=== PATIENT | female | born 1940 | race Caucasian/White ===

== ENCOUNTER 2021-04-04 11:47 | Inpatient (IN) | payer MEDICARE ==
[~2021-04-04] VITALS: Ht 160 cm; Wt 52.5 kg
[2021-04-04 15:39] VITALS: BP 121/95
[2021-04-04] MEDS ORDERED: DONE5TAB82 PO (16:35)
[2021-04-04] MEDS ORDERED: LEVO50TA5 PO (16:35)
[2021-04-04] MEDS ORDERED: ACET-907 PO (16:35)
[2021-04-04] MEDS ORDERED: OMEP-218 PO (16:35)
[2021-04-04] MEDS ORDERED: GABA-282 PO ×2 (16:35)
[2021-04-04] MEDS ORDERED: ATIV1TAB10 PO (16:35)
[2021-04-04] MEDS ORDERED: MORP1CAP46 PO (16:35)
[2021-04-04] MEDS ORDERED: MUCI600T31 PO (16:35)
[2021-04-04] MEDS ORDERED: DICL1GEL3 TOP (16:35)
[2021-04-04] MEDS ORDERED: LEXA1TAB2 PO (16:35)
[2021-04-04] MEDS ORDERED: TREL1AER INH (16:35)
[2021-04-04] MEDS ORDERED: OMEPRAZOLE 20 MG CAP PO PRN (17:25)
[2021-04-04 17:39] LABS: MEAN CORPUSCULAR HEMOGLOBIN 24.9 pg (27.0-33.0); MEAN CORPUSCULAR HGB CONC 28.5 g/dl (32.0-36.5); MEAN CORPUSCULAR VOLUME 87.3 fl (80.0-96.0); PLATELET COUNT, AUTOMATED 285 10^3/uL (150-450); RED BLOOD COUNT 1.73 10^6/uL (4.00-5.40); WHITE BLOOD COUNT 9.1 10^3/uL (4.0-10.0)
[2021-04-04 17:45] LABS: HEMOGLOBIN 4.3 g/dl (12.0-15.5)
[2021-04-04 17:46] LABS: HEMATOCRIT 15.1 % (36.0-47.0)
--- NOTE | 2021-04-04 17:57 | HPEPDOC ---
[facility] Medical History & Physical Date of Admission April 04, 2021 Date of Service: April 04, 2021 Primary Care Physician: KAYA LOMBARDO MD Attending Physician: KUNAL YOUNG DO History and Physical CHIEF COMPLAINT: Severe anemia HISTORY OF PRESENT ILLNESS: And patient was transferred to [facility] [place] from [facility] for severe anemia (hemoglobin 5.0). The patient was supposed to get a blood transfusion about [facility], but they do not carry her type there, and blood transfusion would've been delayed until Friday, therefore she was transferred to our facility for blood transfusion, and evaluation/investigation into possible GI bleed. 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 Amazingly, she actually appears to be at her baseline status at this time. She has chronic shortness of breath due to severe COPD and emphysema, and is always on 3 L nasal cannula /. Perhaps she does have some increase in fatigue, and over the past few days did have a few episodes of lightheadedness, but is not currently experiencing any right now. She does appear more pale than usual though. Nevertheless, given the fact that she is largely asymptomatic with a hemoglobin of 5.0, this would certainly suggest that this is a chronic slow bleed at this time. Labs obtained from [facility] indicate hemoglobin 5.0, MCV 87.2, reticulocyte index of 0.41 indicating inadequate bone marrow response. Iron 17, iron saturation 4, ferritin 11, and apparently the transferrin was still pending. Patient did have a low folic acid at 4.1 She does have chronic kidney disease. And with a history of black tarry stools, it appears that all of these could be contributing to her anemia. Additional labs from [facility] indicate an LDH 327 (mildly high), bilirubin 0.3, and pending haptoglobin. These labs would indicate that hemolysis is a possibility, but less likely the cause of her anemia. Vitamin B12 was within normal limits. TSH and free T4 were within normal limits. CODE STATUS: DNR/DNI a new MOLST form was filled out with the patient and her daughter PAST MEDICAL HISTORY: Chronic back pain secondary to severe lobar spinal stenosis Anxiety Severe COPD Chronic kidney disease Emphysema Hypothyroidism Prediabetes Hyperlipidemia Memory loss/mild dementia Tobacco use PAST SURGICAL HISTORY: Rectal prolapse repair 09/11/2020 Mammogram 2019 Extraction of wisdom tooth 2018 Uterine suspension 1969 Bladder repair in 1968 Hysterectomy 1982 Appendectomy 1974 Most recent colonoscopy 10 10 2019 Cholecystectomy 1996 Tonsillectomy 1960 Cataract surgery in 2016 Rectal suspension 2016 SOCIAL HISTORY: Continues to smoke a few cigarettes per day, she does remove her oxygen to do t his. She has been counseled extensively over the years to quit smoking. She does not drink, nor do any illicit drugs. FAMILY HISTORY: Brother has leukemia, father had manic depressive disorder and colon cancer. Mother had tic [place]. Sr. had heart disorder. REVIEW OF SYSTEMS: Constitutional: Patient denies fevers, chills, night sweats, recent weight gain/loss. HEENT: Patient denies blurred or double vision, transient visual disturbances, postnasal drip, epistaxis, sore throat, difficulty chewing or swallowing food. Cardiovascular: Patient denies chest discomfort/pain, palpitations, exertional dyspnea, orthopnea, edema of the extremities, claudication. Respiratory: Patient denies acute dyspnea, wheezing, cough, hemoptysis, sputum production. Gastrointestinal: Patient denies nausea, vomiting, diarrhea, constipation, abdominal pain, melena, hematochezia, hematemesis, jaundice. PHYSICAL EXAMINATION: General: Awake, alert, oriented 3. She is sitting upright on the edge of the bed. She does appear pale. She is wearing oxygen via nasal cannula. HEENT: Head normocephalic atraumatic, conjunctiva are pink, sclera are nonicteric. She is somewhat hard of hearing, but otherwise it is grossly intact to conversation. Respiratory: Clear to auscultation bilaterally with no wheezes, rales, or rhonchi at this time. Cardiovascular: Regular rate and rhythm, with no rubs, gallops, or murmur. Abdomen: Soft, nontender, nondistended, no hepatosplenomegaly appreciated. Bowel sounds present. Extremities: 2+ pulses in the radial and dorsalis pedis bilaterally. No evidence of clubbing or cyanosis. ASSESSMENT: Severe anemia History of her recent black tarry stools, with suspicion of upper GI bleed Low folic acid Low reticulocyte index indicating inadequate bone marrow response to anemia Iron deficiency anemia Chronic kidney disease, stage III-IV Hypothyroidism Severe COPD with chronic hypoxia PLAN: Will admit the patient to [facility]. -We will transfuse 3 units of blood immediately, and then recheck H&H in the morning, if she is still less than 8, we will perhaps transfuse again tomorrow. Given her frailty and significantly compromised lungs, I do not wish to fluid overload her with too many units at once. Given her history it appears that she does have a GI bleed is quite slow at this time. -We will start her on Protonix 40 mg, as well as Carafate 1g 4 times a day -Stool for occult blood ordered, if this is positive, then recommend consult to GI or surgery for colonoscopy/endoscopy -Low folic acid, supplementation ordered -Otherwise, we'll continue the remainder of her home medications at their usual dose for her chronic medical conditions. -3 L nasal cannula for COPD and chronic hypoxemia, which is her baseline at home Vital Signs Vital Signs Date Time Temp Pulse Resp B/P (MAP) Pulse Ox O2 Delivery O2 Flow Rate FiO2 04/04/21 15:39 97.4 91 20 121/95 (104) 100 Nasal Cannula 3.0 Laboratory Data Labs 24H Laboratory Tests 2 04/04/21 17:12: Nucleated Red Blood Cells % (auto) 0.2H CBC/BMP Laboratory Tests 04/04/21 17:12 Home Medications Scheduled Donepezil HCl (Donepezil HCl) 5 Mg Tablet, 5 MG PO QHS Escitalopram Oxalate (Lexapro) 20 Mg Tablet, 20 MG PO QHS Fluticasone/Umeclidin/Vilanter (Trelegy Ellipta 100-62.5-25) 1 Each Blst.w.dev, 1 PUFF INH DAILY Gabapentin (Gabapentin) 300 Mg Capsule, 600 MG PO BID TAKES MORNING AND BETWEEN 2-3PM Gabapentin (Gabapentin) 300 Mg Capsule, 900 MG PO QHS Levothyroxine Sodium (Levothyroxine Sodium) 50 Mcg Tablet, 50 MCG PO DAILY Morphine Sulfate (Morphine Sulfate ER 24HR) 10 Mg Cap.er.pel, 10 MG PO Q12H Scheduled PRN Acetaminophen (Tylenol) 325 Mg Tablet, 650 MG PO QID PRN for PAIN / FEVER Diclofenac Sodium (Diclofenac Sodium) 1% 100GM Gel..gram., 4 GRAM TOP QID PRN for PAIN APPLY TO KNEES AND BACK Guaifenesin (Mucinex) 600 Mg Tab.er.12h, 600 MG PO BID PRN for COUGH Lorazepam (Ativan) 0.5 Mg Tablet, 0.5 MG PO TID PRN for ANXIETY Omeprazole (Omeprazole) 20 Mg Capsule.dr, 20 MG PO DAILY PRN for HEARTBURN Allergies Coded Allergies: acetaminophen (Verified Adverse Reaction, Mild, ITCHING, 04/04/21) amoxicillin (Verified Adverse Reaction, Mild, VOMITING, 04/04/21) bacitracin (Verified Adverse Reaction, Mild, SYSTEMIC HYPERSENSITIVITY, 04/04/21) clavulanic acid (Verified Adverse Reaction, Mild, VOMITING, 04/04/21) clonazepam (Verified Adverse Reaction, Mild, NAUSEA, 04/04/21) codeine (Verified Adverse Reaction, Mild, ITCHING, 04/04/21) diphenhydramine (Verified Adverse Reaction, Mild, DIZZINESS, 04/04/21) duloxetine (Verified Adverse Reaction, Mild, SWEATS, NAUSEA, 04/04/21) hydrocodone (Verified Adverse Reaction, Mild, ITCHING, 04/04/21) meloxicam (Verified Adverse Reaction, Mild, STOMACH ACHE & HOT FLASHES, 04/04/21) nortriptyline (Verified Adverse Reaction, Mild, MUSCLE WEAKNESS, 04/04/21) paroxetine (Verified Adverse Reaction, Mild, HALUCINATIONS, 04/04/21) pramipexole (Verified Adverse Reaction, Mild, HALUCINATIONS, 04/04/21) sertraline (Verified Adverse Reaction, Mild, HALUCINATIONS, 04/04/21) tramadol (Verified Adverse Reaction, Mild, HALUCINATIONS, 04/04/21) trazodone (Verified Adverse Reaction, Mild, INSOMNIA, 04/04/21) A-FIB/CHADSVASC A-FIB History Current/History of A-Fib/PAF?: No KUNAL YOUNG DO April 04, 2021 17:57
[2021-04-04] MEDS: FOLIC ACID 1 MG TAB PO SCH (18:02)
[2021-04-04 18:08] LABS: ALBUMIN 3.5 GM/DL (3.2-5.2); BILIRUBIN,TOTAL 0.1 MG/DL (0.2-1.0); CALCIUM LEVEL 8.7 MG/DL (8.8-10.2); CREATININE FOR GFR 1.41 MG/DL (0.55-1.30); GLOMERULAR FILTRATION RATE 38.4 (>39); POTASSIUM SERUM 4.3 MEQ/L (3.5-5.1); TOTAL PROTEIN 6.6 GM/DL (6.4-8.2)
[2021-04-04] MEDS: SUCRALFATE 1 GM TAB PO SCH ×2 (18:08→20:19)
[2021-04-04] MEDS: PANTOPRAZOLE 40MG TAB (PROTONIX) PO SCH (18:08)
[2021-04-04] MEDS: ADVAIR HFA 115/21MCG INHALER INH SCH (20:17)
[2021-04-04] MEDS: MORPHINE 30 MG TAB **MSIR PO PRN (20:18)
[2021-04-04] MEDS: DONEPEZIL 5 MG TAB PO SCH (20:19)
[2021-04-04] MEDS: ESCITALOPRAM OXALATE 10 MG TAB (LEXAPRO) PO SCH (20:19)
[2021-04-04] MEDS: GABAPENTIN 300 MG CAP PO SCH (20:19)
[2021-04-04 21:08] VITALS: BP 150/51
[2021-04-04 21:23] VITALS: BP 148/56
[2021-04-04 22:00] VITALS: BP 150/51
[2021-04-04 22:08] VITALS: BP 118/58
[2021-04-04 23:08] VITALS: BP 148/76
[2021-04-05] VITALS (14 sets, daily range): BP systolic 132–158; BP diastolic 67–90
[2021-04-05] MEDS: ACETAMINOPHEN 325 MG TAB PO PRN ×3 (02:52→18:09)
[2021-04-05] MEDS: LEVOTHYROXINE 50MCG TABLET (0.05MG) PO SCH (05:34)
[2021-04-05] MEDS: ADVAIR HFA 115/21MCG INHALER INH SCH ×2 (07:31→19:49)
[2021-04-05] MEDS: PANTOPRAZOLE 40MG TAB (PROTONIX) PO SCH (09:20)
[2021-04-05] MEDS: GABAPENTIN 300 MG CAP PO SCH ×3 (09:20→20:15)
[2021-04-05] MEDS: FOLIC ACID 1 MG TAB PO SCH (09:20)
[2021-04-05] MEDS: SUCRALFATE 1 GM TAB PO SCH ×4 (09:20→20:15)
[2021-04-05] MEDS: LORazepam 0.5 MG TAB PO PRN ×2 (09:31→19:03)
[2021-04-05 10:12] LABS: HEMATOCRIT 28.8 % (36.0-47.0); MEAN CORPUSCULAR HEMOGLOBIN 27.8 pg (27.0-33.0); MEAN CORPUSCULAR HGB CONC 31.6 g/dl (32.0-36.5); MEAN CORPUSCULAR VOLUME 88.1 fl (80.0-96.0); PLATELET COUNT, AUTOMATED 274 10^3/uL (150-450); RED BLOOD COUNT 3.27 10^6/uL (4.00-5.40); WHITE BLOOD COUNT 11.5 10^3/uL (4.0-10.0)
[2021-04-05 10:23] LABS: HEMOGLOBIN 9.1 g/dl (12.0-15.5)
[2021-04-05 10:43] LABS: CALCIUM LEVEL 8.6 MG/DL (8.8-10.2); CREATININE FOR GFR 1.35 MG/DL (0.55-1.30); GLOMERULAR FILTRATION RATE 40.4 (>39); POTASSIUM SERUM 4.1 MEQ/L (3.5-5.1)
[2021-04-05 15:19] LABS: HEMATOCRIT 25.1 % (36.0-47.0); HEMOGLOBIN 8.1 g/dl (12.0-15.5)
[2021-04-05] MEDS ORDERED: propofoL 500 MG/50 ML VIAL As Ordered ONE (15:59)
[2021-04-05] MEDS ORDERED: LIDOCAINE 2% 100MG/5ML SDV (FOR ANES.) As Ordered ONE (15:59)
--- NOTE | 2021-04-05 16:18 | IPNPDOC ---
Text Note Date of Service The patient was seen on 04/05/21. NOTE Hospitalist Progress Note Subjective: Although the patient was feeling okay yesterday, she reports that she is actually feeling even better today. She certainly has a lot more color in her face, she was very pale yesterday. Both her daughter and her accompanying her in the room today, and they agree that this is the best she has looked perhaps in months. Otherwise, she does not have any other complaints, her only question is what the plan is going forward. Objective: General: Awake, alert, oriented 3. Not in any acute distress. HEENT: Head normocephalic, atraumatic, sclera are nonicteric. Hearing is grossly intact to conversation. Respiratory: Clear to auscultation bilaterally with no wheezes, rales, or rhonchi. Cardiovascular: Regular rate and rhythm, with no rubs, gallops, or murmur. Abdomen: Soft, nontender, nondistended, no hepatosplenomegaly appreciated. Bowel sounds present. Extremities: 2+ pulses in the radial and dorsalis pedis bilaterally. No evidence of clubbing or cyanosis. Assessment: Severe anemia requiring blood transfusion History of her recent black tarry stools, with suspicion of upper GI bleed Recent NSAID use Low folic acid Low reticulocyte index indicating inadequate bone marrow response to anemia Iron deficiency anemia Chronic kidney disease, stage III Hypothyroidism History of ongoing severe COPD Chronic hypoxic respiratory failure requiring 3 L O2 via nasal cannula at baseline at home Plan: After administration of 3 units of blood overnight her hemoglobin increased from 4.3 to 9.1, which is more than one would expect, and likely was just drawn too closely after she received her transfusion. Her repeat this afternoon was 8.1, and I would be more likely to believe that this is where she actually is, rather than a decrease from this morning. Nevertheless, we'll repeat another H&H tonight at approximately 10 PM to monitor progression. I have also consulted GI, they are willing to do upper endoscopy today to evaluate for source of bleeding. She is are even on clear liquids, and she will be switched over to nothing by mouth at this time in anticipation of her procedure. The patient and her family report that she heart he had a colonoscopy probably 6 months ago, therefore this does not need to be repeated at this time. Disposition: Disposition depends on the findings during endoscopy, and if H&H remains stable. VS,Fishbone, I+O VS, Fishbone, I+O Laboratory Tests 04/04/21 17:12 04/05/21 09:49 04/05/21 14:59 Vital Signs Date Time Temp Pulse Resp B/P (MAP) Pulse Ox O2 Delivery O2 Flow Rate FiO2 04/05/21 14:00 99.0 84 18 134/86 (102) 98 Nasal Cannula 3.0 I&O- Last 24 Hours up to 6 AM 04/05/21 06:00 Intake Total 1029 ml Output Total 550 ml Balance 479 ml KUNAL YOUNG DO April 05, 2021 16:18
--- NOTE | 2021-04-05 16:44 | ROOR ---
Patient Name: Amy Greenfield Procedure Date: 04/05/2021 3:13 PM Date of : 1940 Age: 80 Room: OR 1 Gender: Female Note Status: Finalized Procedure: Upper GI endoscopy Indications: Iron deficiency anemia Providers: Akbar Mathew MD Referring MD: 2. Inpatient 2. Inpatient Requesting Provider: Medicines: Monitored Anesthesia Care Complications: No immediate complications. Procedure: Pre-Anesthesia Assessment: - The heart rate, respiratory rate, oxygen saturations, blood pressure, adequacy of pulmonary ventilation, and response to care were monitored throughout the procedure. The Endoscope was introduced through the mouth, and advanced to the second part of duodenum. The upper GI endoscopy was accomplished without difficulty. The patient tolerated the procedure well. Findings: A single diminutive angioectasia without bleeding was found in the second portion of the duodenum. Coagulation for bleeding prevention using argon plasma at 0.8 liters/minute and 20 carrillo was successful. Very small (insignificant) Hiatal Hernia. The exam was otherwise without abnormality. Impression: - A single non-bleeding angioectasia in the duodenum. Treated with argon plasma coagulation (APC). - Very small (insignificant) Hiatal Hernia. - The examination was otherwise normal. - No specimens collected. Recommendation: - Observe patient's clinical course. - Return to referring physician as previously scheduled. - Recommend an iron supplement. - Follow up with your [place] endoscopy team as scheduled. - Return to my office PRN. Procedure Code(s): --- Professional --- 46301, Esophagogastroduodenoscopy, flexible, transoral; with control of bleeding, any method Diagnosis Code(s): --- Professional --- D50.9, Iron deficiency anemia, unspecified K31.819, Angiodysplasia of stomach and duodenum without bleeding CPT copyright 2019 [employer]. All rights reserved. The codes documented in this report are preliminary and upon continuous linter drier operator review may be revised to meet current compliance requirements. Akbar Mathew MD Akbar Mathew MD 04/05/2021 4:43:44 PM Electronically signed by Akbar Mathew MD Number of Addenda: 0 Note Initiated On: 04/05/2021 3:13 PM Estimated Blood Loss: Estimated blood loss: none.
[2021-04-05] MEDS ORDERED: ONDANSETRON 4MG/2ML VIAL IV PRN (16:55)
[2021-04-05] MEDS ORDERED: LR 1,000 ML IV SCH (16:55)
[2021-04-05] MEDS ORDERED: ONDANSETRON 4 MG ORAL DISINTEGRATING TAB PO PRN (19:05)
[2021-04-05] MEDS: DONEPEZIL 5 MG TAB PO SCH (20:15)
[2021-04-05] MEDS: ESCITALOPRAM OXALATE 10 MG TAB (LEXAPRO) PO SCH (20:16)
[2021-04-05] MEDS: MORPHINE 30 MG TAB **MSIR PO PRN (20:18)
[2021-04-05 21:42] LABS: HEMATOCRIT 25.4 % (36.0-47.0); HEMOGLOBIN 8.1 g/dl (12.0-15.5)
[2021-04-06 02:00] VITALS: BP 136/72
[2021-04-06] MEDS: LEVOTHYROXINE 50MCG TABLET (0.05MG) PO SCH (05:19)
[2021-04-06 06:00] VITALS: BP 124/57
[2021-04-06] MEDS: ADVAIR HFA 115/21MCG INHALER INH SCH ×2 (07:41→19:52)
[2021-04-06] MEDS: GABAPENTIN 300 MG CAP PO SCH ×3 (07:47→20:33)
[2021-04-06] MEDS: SUCRALFATE 1 GM TAB PO SCH ×4 (07:47→20:33)
[2021-04-06] MEDS: FOLIC ACID 1 MG TAB PO SCH (07:47)
[2021-04-06] MEDS: PANTOPRAZOLE 40MG TAB (PROTONIX) PO SCH (07:47)
[2021-04-06 07:49] LABS: HEMATOCRIT 24.2 % (36.0-47.0); HEMOGLOBIN 7.6 g/dl (12.0-15.5); MEAN CORPUSCULAR HEMOGLOBIN 27.4 pg (27.0-33.0); MEAN CORPUSCULAR HGB CONC 31.4 g/dl (32.0-36.5); MEAN CORPUSCULAR VOLUME 87.4 fl (80.0-96.0); PLATELET COUNT, AUTOMATED 250 10^3/uL (150-450); RED BLOOD COUNT 2.77 10^6/uL (4.00-5.40); WHITE BLOOD COUNT 8.9 10^3/uL (4.0-10.0)
[2021-04-06 08:13] LABS: CALCIUM LEVEL 8.3 MG/DL (8.8-10.2); CREATININE FOR GFR 1.06 MG/DL (0.55-1.30); GLOMERULAR FILTRATION RATE 53.4 (>39); POTASSIUM SERUM 4.2 MEQ/L (3.5-5.1)
[2021-04-06] MEDS ORDERED: IRON SUCROSE 200 MG in NS 100 ML IV ONE (11:00)
[2021-04-06 14:00] VITALS: BP 104/58
[2021-04-06] MEDS: ACETAMINOPHEN 325 MG TAB PO PRN (15:38)
--- NOTE | 2021-04-06 17:56 | IPNPDOC ---
Text Note Date of Service The patient was seen on 04/06/21. NOTE Subjective: No any acute events overnight. Patient denies fever, chills, nausea, diarrhea dysuria Objective: GENERAL APPEARANCE: NAD HEENT: no scleral icterus, no JVD, EOMI CARDIOVASCULAR: S1S2 LUNGS: CTA ABDOMEN: soft & not tender w palpitation MUSCULOSKELETAL: no cyanosis, no swelling INTEGUMENT: no generalized pallor NEUROLOGICAL: cranial nerve function from 2-12 intact intact, follows commands, speech not dysarthric Assessment plan Patient 80 years old female transferred here from [facility] with hemoglobins 4.3. Patient received EGD which showed A single non-bleeding angioectasia in the duodenum. Also during hospital stay patient received 2 units of blood transfusion. Severe anemia requiring blood transfusion/iron deficiency anemia Most likely secondary to GI bleed was done and showed A single non-bleeding angioectasia in the duodenum. Treated with argon plasma coagulation Continue to monitor H&H Hemoglobin stable today Iron supplementation CKD stage III Follow-up with maintenance planning clerk in the outpatient settings Hypothyroidism Continue levothyroxine COPD Chronic hypoxic respiratory failure requiring 3 L O2 via nasal cannula at baseline at home VS,Fishbone, I+O VS, Fishbone, I+O Laboratory Tests 04/05/21 21:27 04/06/21 07:19 Vital Signs Date Time Temp Pulse Resp B/P (MAP) Pulse Ox O2 Delivery O2 Flow Rate FiO2 04/06/21 14:00 99.0 95 16 104/58 (73) 98 Nasal Cannula 3.0 I&O- Last 24 Hours up to 6 AM 04/06/21 06:00 Intake Total 940 ml Balance 940 ml DESIREE DINH DO April 06, 2021 17:56
[2021-04-06] MEDS: guaiFENesin ER 600 MG TAB PO PRN (18:19)
[2021-04-06 18:30] LABS: HEMATOCRIT 26.9 % (36.0-47.0); HEMOGLOBIN 8.3 g/dl (12.0-15.5)
[2021-04-06] MEDS: DONEPEZIL 5 MG TAB PO SCH (20:33)
[2021-04-06] MEDS: ESCITALOPRAM OXALATE 10 MG TAB (LEXAPRO) PO SCH (20:33)
[2021-04-06] MEDS: MORPHINE 30 MG TAB **MSIR PO PRN (21:24)
[2021-04-06 22:00] VITALS: BP 113/61
[2021-04-07] VITALS (7 sets, daily range): BP systolic 111–130; BP diastolic 63–64
[2021-04-07 00:14] LABS: HEMATOCRIT 25.7 % (36.0-47.0); HEMOGLOBIN 8.1 g/dl (12.0-15.5)
[2021-04-07] MEDS: LEVOTHYROXINE 50MCG TABLET (0.05MG) PO SCH (05:22)
[2021-04-07 06:43] LABS: HEMATOCRIT 24.1 % (36.0-47.0); HEMOGLOBIN 7.4 g/dl (12.0-15.5); MEAN CORPUSCULAR HEMOGLOBIN 27.6 pg (27.0-33.0); MEAN CORPUSCULAR HGB CONC 30.7 g/dl (32.0-36.5); MEAN CORPUSCULAR VOLUME 89.9 fl (80.0-96.0); PLATELET COUNT, AUTOMATED 234 10^3/uL (150-450); RED BLOOD COUNT 2.68 10^6/uL (4.00-5.40); WHITE BLOOD COUNT 8.8 10^3/uL (4.0-10.0)
[2021-04-07 07:29] LABS: CALCIUM LEVEL 8.8 MG/DL (8.8-10.2); CREATININE FOR GFR 1.11 MG/DL (0.55-1.30); GLOMERULAR FILTRATION RATE 50.6 (>39)
[2021-04-07] MEDS: ADVAIR HFA 115/21MCG INHALER INH SCH (07:29)
[2021-04-07] MEDS ORDERED: ACETAMINOPHEN TAB 650MG DOSE (2X325MG) PO PRN (07:55)
[2021-04-07] MEDS: SUCRALFATE 1 GM TAB PO SCH ×2 (08:36→13:39)
[2021-04-07] MEDS: GABAPENTIN 300 MG CAP PO SCH ×2 (08:36→15:08)
[2021-04-07] MEDS: PANTOPRAZOLE 40MG TAB (PROTONIX) PO SCH (08:36)
[2021-04-07] MEDS: FOLIC ACID 1 MG TAB PO SCH (08:36)
[2021-04-07] MEDS ORDERED: IRON POLYSAC (NIFEREX) 150 MG CAP PO SCH (09:00)
[2021-04-07] MEDS ORDERED: IRON SUCROSE 200 MG in NS 100 ML IV ONE (10:00)
[2021-04-07] MEDS ORDERED: IRONTAB2 PO (10:02)
[2021-04-07] MEDS ORDERED: PANT40TA29 PO (10:02)
[2021-04-07] MEDS ORDERED: SUCR1TA PO (10:02)
[2021-04-07] MEDS: guaiFENesin ER 600 MG TAB PO PRN (10:26)
[2021-04-07] MEDS: MORPHINE 30 MG TAB **MSIR PO PRN (10:26)
--- NOTE | 2021-04-07 12:26 | DS.PDOC ---
Discharge Summary General Date of Admission April 04, 2021 at 15:30 Date of Discharge 04/07/21 Discharge Summary PROCEDURES PERFORMED DURING STAY: [None]. ADMITTING DIAGNOSES: Severe anemia requiring blood transfusion/iron deficiency anemia CKD stage III Hypothyroidism COPD DISCHARGE DIAGNOSES: Severe anemia requiring blood transfusion/iron deficiency anemia CKD stage III Hypothyroidism COPD COMPLICATIONS/CHIEF COMPLAINT: Anemmia, Upper Gi Bleed. HISTORY OF PRESENT ILLNESS: Patient was transferred to [facility] from [facility] for severe anemia (hemoglobin 5.0). The patient was supposed to get a blood transfusion about [facility], but they do not carry her type there, and blood transfusion would've been delayed until Friday, therefore she was transferred to our facility for blood transfusion, and evaluation/investigation into possible GI bleed. She has chronic shortness of breath due to severe COPD and emphysema, and is always on 3 L nasal cannula 02/06. Perhaps she does have some increase in fatigue, and over the past few days did have a few episodes of lightheadedness, but is not currently experien cing any right now. She does appear more pale than usual though. Nevertheless, given the fact that she is largely asymptomatic with a hemoglobin of 5.0, this would certainly suggest that this is a chronic slow bleed at this time. Labs obtained from [facility] indicate hemoglobin 5.0, MCV 87.2, reticulocyte index of 0.41 indicating inadequate bone marrow response. Iron 17, iron saturation 4, ferritin 11, and apparently the transferrin was still pending. Patient did have a low folic acid at 4.1 She does have chronic kidney disease. And with a history of black tarry stools, it appears that all of these could be contributing to her anemia. Additional labs from [facility] indicate an LDH 327 (mildly high), bilirubin 0.3, and pending haptoglobin. These labs would indicate that hemolysis is a possibility, but less likely the cause of her anemia. Vitamin B12 was within normal limits. TSH and free T4 were within normal limits. HOSPITAL COURSE: During the hospital stay following issues addressed Severe anemia requiring blood transfusion/iron deficiency anemia Most likely secondary to GI bleed EGD was done and showed A single non-bleeding angioectasia in the duodenum. Treated with argon plasma coagulation Hemoglobin stable today Iron supplementation CKD stage III Follow-up with dentist attendant in the outpatient settings Hypothyroidism Continue levothyroxine COPD Chronic hypoxic respiratory failure requiring 3 L O2 via nasal cannula at baseline at home DISCHARGE MEDICATIONS: Please see below. ALLERGIES: Please see below. PHYSICAL EXAMINATION ON DISCHARGE: VITAL SIGNS: Please see below. GENERAL APPEARANCE: NAD HEENT: no scleral icterus, no JVD, EOMI CARDIOVASCULAR: S1S2 LUNGS: CTA ABDOMEN: soft & not tender w palpitation MUSCULOSKELETAL: no cyanosis, no swelling INTEGUMENT: no generalized pallor NEUROLOGICAL: cranial nerve function from 2-12 intact intact, follows commands, speech not dysarthric LABORATORY DATA: Please see below. PROGNOSIS: Fair ACTIVITY: [As tolerated]. DIET: Cardiac DISPOSITION: Home ITEMS TO FOLLOWUP ON ON OUTPATIENT: Follow-up with PCP in 2-3 days DISCHARGE CONDITION: [Stable]. TIME SPENT ON DISCHARGE: 40 minutes. Vital Signs/I&Os Vital Signs Date Time Temp Pulse Resp B/P (MAP) Pulse Ox O2 Delivery O2 Flow Rate FiO2 04/07/21 10:56 16 04/07/21 09:00 3.0 04/07/21 05:00 100.0 94 111/64 (80) 96 Nasal Cannula I&O- Last 24 Hours up to 6 AM 04/07/21 06:00 Intake Total 950 ml Output Total 500 ml Balance 450 ml Laboratory Data Labs 24H Laboratory Tests 2 04/07/21 05:42: Nucleated Red Blood Cells % (auto) 0.2H, Anion Gap 7L, Glomerular Filtration Rate 50.6, Calcium Level 8.8 CBC/BMP Laboratory Tests 04/06/21 18:15 04/06/21 23:50 04/07/21 05:42 Microbiology Microbiology 04/06/21 Stool Occult Blood (AGNES) - Final, Complete Discharge Medications Scheduled Donepezil HCl (Donepezil HCl) 5 Mg Tablet, 5 MG PO QHS, (Reported) Escitalopram Oxalate (Lexapro) 20 Mg Tablet, 20 MG PO QHS, (Reported) Fluticasone/Umeclidin/Vilanter (Trelegy Ellipta 100-62.5-25) 1 Each Blst.w.dev, 1 PUFF INH DAILY, (Reported) Gabapentin (Gabapentin) 300 Mg Capsule, 600 MG PO BID, (Reported) TAKES MORNING AND BETWEEN 2-3PM Gabapentin (Gabapentin) 300 Mg Capsule, 900 MG PO QHS, (Reported) Iron,Carb/Vit C/Vit B12/Folic (Iron 100 Plus Tablet) 1 Each Tablet, 1 TAB PO DAILY Levothyroxine Sodium (Levothyroxine Sodium) 50 Mcg Tablet, 50 MCG PO DAILY, (Reported) Morphine Sulfate (Morphine Sulfate ER 24HR) 10 Mg Cap.er.pel, 10 MG PO Q12H, (Reported) Pantoprazole Sodium (Pantoprazole Sodium) 40 Mg Tablet.dr, 40 MG PO DAILY Sucralfate (Sucralfate) 1 Gm Tablet, 1 GM PO QID Scheduled PRN Acetaminophen (Tylenol) 325 Mg Tablet, 650 MG PO QID PRN for PAIN / FEVER, (Reported) Diclofenac Sodium (Diclofenac Sodium) 1% 100GM Gel..gram., 4 GRAM TOP QID PRN for PAIN, (Reported) APPLY TO KNEES AND BACK Guaifenesin (Mucinex) 600 Mg Tab.er.12h, 600 MG PO BID PRN for COUGH, (Reported) Lorazepam (Ativan) 0.5 Mg Tablet, 0.5 MG PO TID PRN for ANXIETY, (Reported) Omeprazole (Omeprazole) 20 Mg Capsule.dr, 20 MG PO DAILY PRN for HEARTBURN, (Reported) Allergies Coded Allergies: acetaminophen (Verified Adverse Reaction, Mild, ITCHING, 04/04/21) amoxicillin (Verified Adverse Reaction, Mild, VOMITING, 04/04/21) bacitracin (Verified Adverse Reaction, Mild, SYSTEMIC HYPERSENSITIVITY, 04/04/21) clavulanic acid (Verified Adverse Reaction, Mild, VOMITING, 04/04/21) clonazepam (Verified Adverse Reaction, Mild, NAUSEA, 04/04/21) codeine (Verified Adverse Reaction, Mild, ITCHING, 04/04/21) diphenhydramine (Verified Adverse Reaction, Mild, DIZZINESS, 04/04/21) duloxetine (Verified Adverse Reaction, Mild, SWEATS, NAUSEA, 04/04/21) hydrocodone (Verified Adverse Reaction, Mild, ITCHING, 04/04/21) meloxicam (Verified Adverse Reaction, Mild, STOMACH ACHE & HOT FLASHES, 04/04/21) nortriptyline (Verified Adverse Reaction, Mild, MUSCLE WEAKNESS, 04/04/21) paroxetine (Verified Adverse Reaction, Mild, HALUCINATIONS, 04/04/21) pramipexole (Verified Adverse Reaction, Mild, HALUCINATIONS, 04/04/21) sertraline (Verified Adverse Reaction, Mild, HALUCINATIONS, 04/04/21) tramadol (Verified Adverse Reaction, Mild, HALUCINATIONS, 04/04/21) trazodone (Verified Adverse Reaction, Mild, INSOMNIA, 04/04/21) DESIREE DINH DO April 07, 2021 12:25
[2021-04-07] MEDS: LORazepam 0.5 MG TAB PO PRN (15:07)
== END 2021-04-07 16:43 | disposition home or self-care (01) | DRG 812 ==
LOC: UNDOADMIN 14:54 → M ICU 14:54 → M MSPAV 15:30
PROVIDERS: ADMIT Internal Medicine; ATTEND Internal Medicine
PROC: 30233N1 Transfusion of Nonautologous Red Blood Cells into Peripheral Vein, Percutaneous Approach (ICD-10-PCS; principal; 2021-04-04)
PROC: 0W3P8ZZ Control Bleeding in Gastrointestinal Tract, Via Natural or Artificial Opening Endoscopic (ICD-10-PCS; 2021-04-05)
DX: D50.0 Iron deficiency anemia secondary to blood loss (chronic) (principal); J96.11 Chronic respiratory failure with hypoxia; N18.30 Chronic kidney disease, stage 3 unspecified; K31.819 Angiodysplasia of stomach and duodenum without bleeding; E03.9 Hypothyroidism, unspecified; J44.9 Chronic obstructive pulmonary disease, unspecified; F41.9 Anxiety disorder, unspecified; R73.03 Prediabetes; Z66 Do not resuscitate; K44.9 Diaphragmatic hernia without obstruction or gangrene; E78.5 Hyperlipidemia, unspecified; F03.90 Unspecified dementia, unspecified severity, without behavioral disturbance, psychotic disturbance, mood disturbance, and anxiety; F17.210 Nicotine dependence, cigarettes, uncomplicated; Z90.49 Acquired absence of other specified parts of digestive tract; Z98.49 Cataract extraction status, unspecified eye; Z99.81 Dependence on supplemental oxygen; Z79.891 Long term (current) use of opiate analgesic; Z79.899 Other long term (current) drug therapy; Z88.0 Allergy status to penicillin; Z88.5 Allergy status to narcotic agent; Z88.6 Allergy status to analgesic agent; Z88.8 Allergy status to other drugs, medicaments and biological substances